=== PATIENT | male | born 1975 | race Caucasian/White ===

== ENCOUNTER 2017-11-10 19:08 | Emergency (ER) | payer SELFPAY ==
[~2017-11-10] VITALS: Ht 165.1 cm; Wt 72.5 kg
[2017-11-11] MEDS ORDERED: BACITRACIN ZINC OINT UDPKT TOP ONE (01:15)
[2017-11-11] MEDS ORDERED: TETANUS, DIPHTHERIA, PERTUSSIS VAC/PF 0.5ML (>7YR OLD) IM ONE (01:15)
[2017-11-11] MEDS ORDERED: LIDOCAINE HCL/PF 1% 2ML VIAL INFIL ONE (01:15)
[2017-11-11] MEDS ORDERED: LIDOCAINE HCL/PF 1% 10 MG/ML 5ML VIAL IJ SCH (01:48)
[2017-11-11 02:16] VITALS: BP 115/69
== END 2017-11-11 02:18 | disposition home or self-care (01) ==
LOC: ER 19:08
DX: S61.216A Laceration without foreign body of right little finger without damage to nail, initial encounter (principal); F17.200 Nicotine dependence, unspecified, uncomplicated; Z98.890 Other specified postprocedural states; W45.8XXA Other foreign body or object entering through skin, initial encounter; Y93.G1 Activity, food preparation and clean up; Y92.89 Other specified places as the place of occurrence of the external cause; Y99.8 Other external cause status
CPT/HCPCS: 12001; 90471; 90715; 99283; J3490; X7700; Z7610

== ENCOUNTER 2018-02-05 08:36 | Emergency (ER) | payer MEDICAID ==
[~2018-02-05] VITALS: Ht 167.6 cm; Wt 73.0 kg
[2018-02-05] MEDS ORDERED: IBUPROFEN 600MG TABLET PO ONE (10:15)
[2018-02-05 10:30] VITALS: BP 128/91
== END 2018-02-05 12:00 | disposition home or self-care (01) ==
LOC: ER 08:36
DX: K04.7 Periapical abscess without sinus (principal); R22.0 Localized swelling, mass and lump, head; F17.210 Nicotine dependence, cigarettes, uncomplicated
CPT/HCPCS: 99283; 99406

== ENCOUNTER 2019-08-14 22:17 | Emergency (ER) | payer MEDICAID ==
[~2019-08-14] VITALS: Ht 172.7 cm; Wt 73.0 kg
[2019-08-14] MEDS ORDERED: HYDROCODONE/ACETAMINOPHEN 5/325MG TABLET PO ONE (23:15)
[2019-08-14] MEDS ORDERED: LIDOCAINE HCL/PF 1% 10 MG/ML 5ML VIAL IJ ONE (23:15)
[2019-08-14] MEDS ORDERED: BACITRACIN ZINC OINT UDPKT TOP ONE (23:15)
[2019-08-14] MEDS ORDERED: TETANUS, DIPHTHERIA, PERTUSSIS VAC/PF 0.5ML (>7YR OLD) IM ONE (23:15)
[2019-08-15 01:39] VITALS: BP 121/74
== END 2019-08-15 01:40 | disposition home or self-care (01) ==
LOC: ER 22:17
DX: S01.81XA Laceration without foreign body of other part of head, initial encounter (principal); W18.39XA Other fall on same level, initial encounter; Y93.89 Activity, other specified; Y92.89 Other specified places as the place of occurrence of the external cause; Y99.8 Other external cause status; Z98.890 Other specified postprocedural states
CPT/HCPCS: 12015; 70450; 70486; 90471; 90715; 99285; J3490